=== PATIENT | female | born 1955 | race Caucasian/White ===

== ENCOUNTER → 2023-10-11 14:15 | Outpatient (REF) | payer OTHER, SELFPAY ==
[2023-10-11 15:44] LABS: Blood Urea Nitrogen 19 mg/dl (7-17)
== END ==
LOC: REG 14:15
PROVIDERS: ATTENDING PHYSICIAN Family Medicine
DX: R19.00 Intra-abdominal and pelvic swelling, mass and lump, unspecified site (principal)
CPT/HCPCS: 36415; 82565; 84520

== ENCOUNTER → 2023-10-12 12:15 | Outpatient (REF) | payer OTHER, SELFPAY | LOC: HWRAD 12:15 | PROVIDERS: ATTENDING PHYSICIAN Family Medicine | DX: R19.00 Intra-abdominal and pelvic swelling, mass and lump, unspecified site (principal) | CPT/HCPCS: 74177; Q9967 ==

== ENCOUNTER 2023-12-07 06:33 | Day surgery (SDC) | payer OTHER, SELFPAY ==
[2023-12-07 12:16] VITALS: BMI 24.8
[2023-12-07 12:17] VITALS: BP 107/72; BMI 24.8
[2023-12-07 14:20] VITALS: BP 104/68
[2023-12-07 14:30] VITALS: BP 110/76
[2023-12-07 14:45] VITALS: BP 112/73
[2023-12-07 15:00] VITALS: BP 113/75
== END 2023-12-07 16:00 | disposition home or self-care (01) ==
LOC: GI 06:33
PROVIDERS: ATTENDING PHYSICIAN Internal Medicine Gastroenterology
DX: K31.89 Other diseases of stomach and duodenum (principal); K86.9 Disease of pancreas, unspecified; C49.A2 Gastrointestinal stromal tumor of stomach; R93.3 Abnormal findings on diagnostic imaging of other parts of digestive tract; D49.0 Neoplasm of unspecified behavior of digestive system
CPT/HCPCS: 43238; 88172; 88173; 88305; 88177; 88341; 88342

== ENCOUNTER 2024-08-03 11:34 | Emergency (ER) | payer OTHER, SELFPAY ==
[2024-08-03 11:40] VITALS: BP 109/67
[2024-08-03 11:42] VITALS: BP 109/67
--- NOTE | 2024-08-03 12:53 | ED.GENMED ---
History of Present Illness
General
Chief Complaint: Abdominal Symptoms
Time Seen by Provider: 08/03/24 12:05
History of Present Illness
History of Present Illness:
69-year-old female with history of high blood pressure presenting to the emergency department for nausea, vomiting, diarrhea. Patient reports symptoms for the past 3 days. Last episode of vomiting was last evening and last episode diarrhea was
this morning. Denies any food association. Denies any known sick contacts. Denies any abdominal pain. Denies fever. Denies chest pain or difficulty breathing. Denies any blood in the diarrhea. Denies any recent biotic usage. Denies
additional acute medical complaints
Phy Exam
Physical Exam
Physical Exam:
General: Well-appearing, no clinical signs of dehydration, nontoxic and in no acute distress
HEENT: protecting airway
Neck: appears supple
CV: Normal heart rate, regular rhythm
Resp: No accessory muscle use, no increased work of breathing, lungs clear to auscultation bilaterally
Abd: Soft and non-distended, no tenderness to palpation
Extremities: No deformities, no swelling
Neuro: alert, no focal neurologic deficit
: deferred
Rectal: deferred
Psych: Normal affect
Skin: Intact
Course
Orders/Labs/Results
Orders:
Orders
08/03/24 13:22
Complete Blood Count/With Diff Urgent
Comprehensive Metabolic Panel Urgent
Lipase Urgent
Urinalysis Reflex To Culture Urgent
Date Specimen was Collected: 08/03/24
Time Specimen was Collected: 13:21
Urine Microscopic Reflex Cult Urgent
Urine Culture Urgent
JESUS Source: U
Specimen Description:
Date Specimen was Collected: 08/03/24
Time Specimen was Collected: 13:21
Abnormal Lab Results
08/03/24
13:22
MCH 32.1 H pg
(27.0-31.0)
Absolute Monos (auto) 0.7 H 10^3/uL
(0.1-0.6)
Carbon Dioxide 31 H mmol/L
(22-30)
BUN 23 H mg/dl
(7-17)
Total Bilirubin 1.4 H mg/dl
(0.2-1.3)
Ur Occult Blood Reflex 1+ A
(Negative)
Leukocyte Esterase Rfl 1+ A
(Negative)
Urine RBC 11-15 A /HPF
(0-2)
Urine Bacteria (Reflex) Few A
(Negative)
Urine Albumin (Reflex) 2+ A
(Neg - Trace)
08/03/24 13:22
08/03/24 13:22
Vital Signs
Initial and Last Documented VS:
Initial Vital Signs
Temp Pulse Resp BP Pulse Ox
98.5 F 95 16 109/67 100
08/03/24 11:40 08/03/24 11:40 08/03/24 11:40 08/03/24 11:40 08/03/24 11:40
Last Documented Vital Signs
Temp Pulse Resp BP Pulse Ox
98.5 F 89 16 109/67 98
08/03/24 11:42 08/03/24 11:42 08/03/24 11:42 08/03/24 11:42 08/03/24 11:42
MDM/Problems Addressed
MDM/Problems Addressed:
69-year-old female with history of hypertension presenting to the emergency department for nausea, vomiting, diarrhea. Vital signs are normal.
On exam patient is resting comfortably, no acute distress or discomfort. Symptoms appear most consistent with viral gastroenteritis. Patient is afebrile, nontoxic. No tenderness to the abdomen, lower suspicion for any intra-abdominal process or
infection. Will screen with laboratory analysis and continue to closely monitor.
14:20 -labs unremarkable. At this time continue to suspect uncomplicated viral gastroenteritis. Advised bland diet and continued supportive therapy. Feel stable for discharge. Return precautions discussed and patient verbalized understanding
*Critical Care Note
Total Time (30-74mins, 75-104mins- exclusive of procedures): Not Applicable
ED Attending Note
-
Portions of this chart may have been created with voice recognition software.� Occasional wrong word or��sound alike� substitutions may have occurred due to the inherent limitations of voice recognition software.
Discharge Plan
Departure
Prescriptions:
No Action
atorvastatin 20 mg Tablet
20 mg PO DAILY
lisinopril 20 mg Tablet
20 mg PO DAILY
paroxetine HCl [Paxil] 30 mg Tablet
30 mg PO DAILY
Referrals:
Rudy Bliss, [Family Provider] -
Interventions
Interventions:
*Risk Screen - Suicide Last Done: 08/03/24 11:42
*General Assessment Last Done: 08/03/24 13:19
*Neglect/Abuse Screening Last Done: 08/03/24 11:42
*ED- Fall Risk Assessment Last Done: 08/03/24 13:19
*ED COVID-19 Vaccine History Last Done: 08/03/24 13:19
WZ-Doprxf-Yctihtbyjf Assessment Last Done: 08/03/24 13:19
Discharge Date and Time
Print Language: ARABIC
[2024-08-03 13:19] VITALS: BMI 25.2
[2024-08-03 13:30] LABS: Urine Albumin 2+ (Neg - Trace); Urine Bilirubin Negative (Negative); Urine Character Clear (Clear); Urine Color Yellow; Urine Glucose Negative (Negative); Urine Ketone Negative (Negative); Urine Leukocyte 1+ (Negative); Urine Nitrite Negative (Negative); Urine Occult Blood 1+ (Negative); Urine Urobilinogen 1+ (Neg - 1+)
[2024-08-03 13:32] LABS: % Basophils 0.5 % (0-2); % Eosinophils 1.1 % (0-6); % Immature Granulocytes 0.2 % (0-0.5); % Lymphocytes 24.4 % (20.5-51.1); % Monocytes 8.3 % (1.7-9.3); % Neutrophils 65.5 % (42.2-75.2); Absolute Eosinophils 0.1 10^3/uL (0-0.7); Absolute Monocytes 0.7 10^3/uL (0.1-0.6); Absolute Neutrophils 5.4 10^3/uL (1.4-6.5); Hematocrit 39.4 % (37.0-47.0); Hemoglobin 13.6 g/dL (12.0-16.0); Mean Corp Hgb Conc. 34.5 g/dL (33.0-37.0); Mean Corpuscular Hgb 32.1 pg (27.0-31.0); Mean Corpuscular Volume 92.9 fL (81.0-99.0); Mean Platelet Volume 9.9 fL (7.4-10.4); Nucleated Red Blood Cells % 0 %; Platelet Count 255 10^3/uL (130-400); Red Blood Cell Count 4.24 10^6/uL (4.20-5.40); Red Cell Dist. Width 12.5 % (11.5-14.5); White Blood Cell Count 8.3 10^3/uL (4.8-10.8)
[2024-08-03 13:38] LABS: Urine Mucus Moderate; Urine Squamous Cell 26-30 /LPF (Few)
[2024-08-03 13:39] LABS: Urine Bacteria Few (Negative)
[2024-08-03 13:46] LABS: ALT (SGPT) 20 U/L (0-35); AST (SGOT) 23 U/L (14-36); Albumin 4.2 g/dl (3.5-5.0); Alkaline Phosphatase 84 U/L (38-126); Blood Urea Nitrogen 23 mg/dl (7-17); Calcium 9.6 mg/dl (8.4-10.2); Carbon Dioxide 31 mmol/L (22-30); Chloride 102 mmol/L (98-107); Estimated Creatinine Clearance 65 ml/min; Glucose 94 mg/dl (70-99); Lipase 208 U/L (23-300); Potassium 3.8 mmol/L (3.5-5.1); Sodium 140 mmol/L (135-145); Total Bilirubin 1.4 mg/dl (0.2-1.3); Total Protein 6.6 g/dl (6.3-8.2); eGFR > 60.00
== END 2024-08-03 14:39 | disposition home or self-care (01) ==
LOC: EMR 11:34
PROVIDERS: EMERGENCY PHYSICIAN Student in an Organized Health Care Education/Training Program; FAMILY PHYSICIAN Family Medicine
DX: R11.2 Nausea with vomiting, unspecified (principal); R19.7 Diarrhea, unspecified; I10 Essential (primary) hypertension
CPT/HCPCS: 99283; 80053; 81003; 81015; 83690; 85025; 87086